=== PATIENT | male | born 1955 | race Caucasian/White ===

== ENCOUNTER → 2019-10-06 | Outpatient (CLI) | payer BC ==
--- NOTE | 2019-10-06 12:16 | EST ---
EXERCISE STRESS AGE: 64 SEX: M HT: 72" WT: 215 PROTOCOL: Rafa Stress Test STAGE: 3 DURATION OF EXERCISE: 9:00 HEART RATE REST: 68 BLOOD PRESSURE REST: 139/92 MAXIMUM HEART RATE ACHIEVED: 135 MAXIMUM BLOOD PRESSURE: 230/96 85% MPHR: 134 100% MPHR: 158 METS: 10.5 INDICATIONS: Exertional fatigue. CLINICAL INFORMATION: Baseline EKG shows sinus rhythm, normal axis, normal intervals. Patient exercised on Rafa protocol for a total of 9 minutes achieving 10 METS, 86% of predicted maximal heart rate without chest pain or diagnostic ST-segment depression. CONCLUSIONS: 1. Excellent exercise tolerance. 2. Negative stress test by EKG criteria. MMODL / IJN: [id number] /
== END | disposition home or self-care (01) ==
LOC: RADNMMAIN 08:29
PROVIDERS: ATTEND Family Medicine
DX: R53.83 Other fatigue (principal)
CPT/HCPCS: 93017

== ENCOUNTER 2023-03-24 11:09 | Day surgery (SDC) | payer MEDICARE, BC ==
[2023-03-24] MEDS: LACTATED RINGERS 1,000 ML IV SCH ×2 (12:15→13:12)
[2023-03-24 12:18] VITALS: TEMP 97.1
[2023-03-24] MEDS ORDERED: PROPOFOL 10 MG/ML 20 ML VIAL IV ONE (13:16)
--- NOTE | 2023-03-24 13:32 | P.PCN ---
Date of Procedure: 03/24/23 Procedure(s) Performed: BRIEF HISTORY: Patient is a 67-year-old pleasant white male scheduled for an elective colonoscopy as a part of screening for colon cancer and family history of colon cancer. His dad was diagnosed with colon cancer at age 80. PROCEDURE PERFORMED: Colonoscopy with snare polypectomy. PREOPERATIVE DIAGNOSIS: Screening for colon cancer and family history of colon cancer. IV sedation per Anesthesia. PROCEDURE: After informed consent was obtained, the patient, was brought into [facility] endoscopy unit. IV sedation was administered by Anesthesia under continuous monitoring. Digital rectal examination was normal. Initially the Olympus CF-160 flexible video colonoscope was then inserted in the rectum, gradually advanced into the cecum without any difficulty. Careful examination was performed as the scope was gradually being withdrawn. Ileocecal valve and the appendiceal orifice were visualized and appeared normal. Prep was excellent. Mucosa of the cecum, ascending colon, transverse colon, descending colon, sigmoid colon, and rectum appeared normal. There was a 4 mm and a 7 mm proximal rectal polyp status post cold snare polypectomy. Scattered sigmoid diverticulosis. Retroflexion was performed in the rectum and no lesions were seen. The patient tolerated the procedure well. IMPRESSION: 4 mm and 7 mm proximal rectal polyp status post snare polypectomy Scattered sigmoid diverticulosis. RECOMMENDATIONS: Findings of this examination were discussed with the patient as well as his family. He was advised to follow with the biopsy results. If the biopsy with adenoma he can have a repeat colonoscopy in 5 years
[2023-03-24 13:39] VITALS: PULSE 66
[2023-03-24 14:04] VITALS: BP 121/71; RESP 18
[2023-03-24] MEDS ORDERED: LACTATED RINGERS 1,000 ML IV ONE (14:04)
== END 2023-03-24 14:19 | disposition home or self-care (01) ==
LOC: ORWHC2ENDO 11:09
PROVIDERS: ATTEND Internal Medicine Gastroenterology
DX: Z12.11 Encounter for screening for malignant neoplasm of colon (principal); D12.8 Benign neoplasm of rectum; K57.30 Diverticulosis of large intestine without perforation or abscess without bleeding; I10 Essential (primary) hypertension; Z80.0 Family history of malignant neoplasm of digestive organs; M19.90 Unspecified osteoarthritis, unspecified site; Z79.899 Other long term (current) drug therapy
CPT/HCPCS: 88305; 45385; J2704

== ENCOUNTER → 2024-06-15 | Outpatient (CLI) | payer MEDICARE, BC ==
--- NOTE | 2024-06-15 16:13 | NM ---
EXAMINATION TYPE: NM bone scan whole body DATE OF EXAM: 06/15/2024 1:48 PM CLINICAL INDICATION:Male, 69 years old with history of M54.6 PAIN IN THORACIC SPINE; COMPARISON: MRI TECHNIQUE: Intravenous administration 24.3 mCi Tc 99m MDP followed by multiple scintigraphic images o f the appendicular and axial skeleton. Small [id number] thoracic and abdominal imaging performed. Images acquired 5.5 hours post injection. FINDINGS: No abnormal uptake is identified within the appendicular or axial skeleton to suggest metastatic dise ase. The thoracic spine demonstrates no evidence for focal uptake. There is increased uptake within the bilateral shoulder, sternoclavicular, and sacroiliac joints con sistent with degenerative changes. No other photopenic areas or areas of increased activity are ident ified. Physiologic radiotracer activity is demonstrated in the kidneys and bladder. IMPRESSION: Nothing to suggest metastatic disease. [facility], , 06/15/2024 4:11 PM
== END | disposition home or self-care (01) ==
LOC: RADNMMAIN 07:16
PROVIDERS: ATTEND Family Medicine
DX: M54.6 Pain in thoracic spine (principal)
CPT/HCPCS: 78306; A9503

== ENCOUNTER → 2024-08-08 | Outpatient (CLI) | payer MEDICARE, BC ==
[2024-08-08 09:16] VITALS: BP 147/80; PULSE 57; RESP 16; TEMP 97.1
--- NOTE | 2024-08-08 17:09 | P.PAINPG ---
Objective - Vital Signs Vital signs: Intake & Output 08/07/24 08/08/24 08/08/24 18:59 06:59 18:59 Weight 90.718 kg PQRS Measure Charge Sheet Comment: HISTORY OF PRESENT ILLNESS: A 69 yr old male as a referral from Dr Mc presents today w severe and chronic neck pain > 1 yr secondary to radiculopathy, spondylosis and facet arthropathy without myelopathy for evaluation. Pt states pain level is provoked at 8 /10 in intensity, constant, localized in the cervical spine, predominantly axial, achy in character w occasional shooting pain towards the shoulders and UEs. Pain is provoked by flexion. Pain is alleviated by PT x 6 wks which ended in 2020, physician guided home exercises almost daily since 2020, heat, ice, medications (Percocet, Neurontin from Dr Marie), topical Icy-Hot, repositioning and rest . Cervical disability score at 30. PMH: OA, HTN, GERD PSH: Cervical RFA (2020), R Elbow (2020) injections SH: Daily tobacco use, Occ ETOH use, No illicit drug use FH: CAD All: See list Meds: See list including Eliquis REVIEW OF ORGAN SYSTEMS: CONSTITUTIONAL: No fevers or chills. No recent weight loss. NEUROLOGICAL: + numbness and tingling along the distal extremities. No seizure disorders or headaches. MUSCULOSKELETAL: + pain PSYCHIATRIC: Denies current depression or suicidal thoughts. Physical Examinations : Constitutional : Cooperative , not in acute distress . Neurologic : Cranial nerve II to XII intact. No focal neurological deficits. Psychiatric : alert & oriented x 3. Matching mood & appropriate affect. Judgment & insight intact. Musculoskeletal : Cervical Spine Motor strength in the deltoid and biceps: Normal right side. Normal Left side Motor strength biceps and the wrist extensors: Normal right side . Normal left side Motor strength in the triceps muscle: Normal right side. Normal left side Deep tendon reflexes: Normal at the biceps. Normal at Brachioradialis. Normal at triceps Vertebral body tenderness to deep palpation over C6 Cervical facet loading test: positive bilaterally Spurling test: positive bilaterally Neck distraction test: positive bilaterally Bruno sign: positive bilaterally Lumbar spine Motor strength lower extremities ,thigh and legs 5/5 Right side , 5/5 Left side Deep tendon reflexes : Normal Knee Jerk. Normal Ankle Jerk Vertebral body tenderness over Li Test positive Lumbar facet Loading Test: positive Right / positive Left Range of motion of the lumbar spine Flexion 30 degrees, extension 10 degrees Straight Leg Raise test: Left/ Right positive at degrees Sophia test: positive right / positive left. Severe tenderness over the Sacroiliac joint on the Right / Left sides Gaenslen test: positive bilaterally Seated flexion test: positive bilaterally. Sacral spine : Severe tenderness over the Sacroiliac joint: right side / left side Range of motion: Flexion of the lumbar spine <60 degrees Range of motion: Extension of the lumbar spine <20 degrees Gaenslen's Test positive Sophia test: positive right side / left side Thigh Thrust Test Sacral Thrust Test Imaging: MRI non contrast cervical spine from 05/17/24 reviewed Assessment/ Plan : Cervical radiculopathy, C5-C6 mod spinal stenosis, Cervical facet arthropathy, Cerebellar tonsils identified on MRI 05/17/24 Recommendation of follow up w Dr Laughlin, neurologist re: cerebellar tonsils. Script provided. All questions answered. I have spent greater than 30 minutes on patient care today. Dr Jamison was available by phone for the evaluation of this patient. The time was used to review the medical records including relevant urine studies and Prescription history (MAPs), review of the available imaging, evaluation and examination of the patient, coordination of care with the medical staff and if applicable referring physicians, as well as creation of the medical record Home Medications: Ambulatory Orders Apixaban [Eliquis] 5 mg PO BID 03/19/23 Glucosamine/Chondr Golden A Sod [Osteo Bi-Flex Caplet] 1 tab PO QAM 03/19/23 Multivitamins, Thera [Multivitamin (formulary)] 1 tab PO QAM 03/19/23 amLODIPine [Norvasc] 10 mg PO QAM 03/19/23 lisinopriL 40 mg PO QAM 03/19/23 oxyCODONE-APAP 10-325MG [Percocet 10-325 mg] 1 tab PO Q4HR PRN 03/19/23 predniSONE 10 mg PO DAILY PRN 03/19/23 Controlled Substance Measures - Controlled Substance Measures Is patient prescribed a controlled substance at discharge?: No
== END ==
LOC: PNWHC3 08:31
PROVIDERS: ATTEND Specialist
DX: M47.22 Other spondylosis with radiculopathy, cervical region (principal); M48.02 Spinal stenosis, cervical region; G93.5 Compression of brain; G89.29 Other chronic pain
CPT/HCPCS: 99202

== ENCOUNTER → 2024-10-27 | Outpatient (CLI) | payer MEDICARE, BC ==
--- NOTE | 2024-10-27 14:26 | MR ---
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 COMPARISON: MR cervical spine 05/17/2024, 11/25/2014. TECHNIQUE: Multi planar, multi sequence imaging was performed through the brain. The patient was then given 9 cc of Gadobutrol intravenously and multi planar, T1 fat-saturation images were obtained. FINDINGS: The liang-white junctions, ventricular system, basal cisterns appear unremarkable. Age-appropriate cer ebral parenchymal volume. Diffusion-weighted imaging shows no evidence of restricted diffusion to sug gest acute/subacute infarct. Intracranial arterial flow voids are maintained. Midline structures show no abnormality. Patchy areas of high T2/FLAIR signal intensity are seen within the supratentorial pe riventricular and subcortical white matter. Largest is within the posterior right subcortical white m atter measuring up to 6 mm (series 601, image 23). The susceptibility weighted images demonstrate a p unctate single focus of blooming artifact within the right frontal lobe representing prior hemosideri n deposition. After administration of gadolinium, no abnormal enhancement is seen. No distinct cerebe llar lesion identified. The bone marrow signal is within normal limits. The unremarkable. Mild mucosal thickening in the eth moid sinuses. IMPRESSION: 1. No evidence of intracranial mass, acute/subacute infarct, or abnormal enhancement. No distinct cer ebellar lesion. 2. Nonspecific mild white matter changes, likely related to small vessel ischemic disease. Demyelinat ing disease, chronic migraines, vasculitis, Lyme disease are other considerations. [facility], , 10/27/2024 2:24 PM
== END | disposition home or self-care (01) ==
LOC: RADMRIMAIN 12:49
PROVIDERS: ATTEND Psychiatry & Neurology Neurology
DX: G93.9 Disorder of brain, unspecified (principal); G43.909 Migraine, unspecified, not intractable, without status migrainosus; A69.20 Lyme disease, unspecified; R90.82 White matter disease, unspecified
CPT/HCPCS: 70553; A9585

== ENCOUNTER → 2025-02-06 | Outpatient (CLI) | payer MEDICARE, BC ==
[2025-02-06 08:16] VITALS: BP 152/78; PULSE 99; RESP 16; TEMP 97.2
--- NOTE | 2025-02-06 14:29 | P.PAINPG ---
PQRS Measure Charge Sheet Comment: HISTORY OF PRESENT ILLNESS: A 69 yr old male presents today w severe and chronic neck pain > 1 yr secondary to radiculopathy, spondylosis and facet arthropathy without myelopathy for evaluation. Pt states pain level is provoked at 5-8 /10 in intensity, constant, localized in the cervical spine, predominantly axial, achy in character w occasional shooting pain towards the shoulders and UEs. Pain is provoked by flexion. Pain is alleviated by PT x 6 wks which ended in 2020, physician guided home exercises almost daily since 2020, heat, ice, medications, topical, repositioning and rest . Cervical disability score at 30. Interventional procedures include ESIs L C6-C7 (2019) Medications include Percocet and Neurontin (from Dr Marie), Icy-Hot, Eliquis REVIEW OF ORGAN SYSTEMS: CONSTITUTIONAL: No fevers or chills. No recent weight loss. NEUROLOGICAL: + numbness and tingling along the distal extremities. No seizure disorders or headaches. MUSCULOSKELETAL: + pain PSYCHIATRIC: Denies current depression or suicidal thoughts. Physical Examinations : Constitutional : Cooperative , not in acute distress . Neurologic : Cranial nerve II to XII intact. No focal neurological deficits. Psychiatric : alert & oriented x 3. Matching mood & appropriate affect. Judgment & insight intact. Musculoskeletal : Cervical Spine Motor strength in the deltoid and biceps: Normal right side. Normal Left side Motor strength biceps and the wrist extensors: Normal right side . Normal left side Motor strength in the triceps muscle: Normal right side. Normal left side Deep tendon reflexes: Normal at the biceps. Normal at Brachioradialis. Normal at triceps Vertebral body tenderness to deep palpation over C6 Cervical facet loading test: positive bilaterally Spurling test: positive bilaterally Neck distraction test: positive C6-C7 L> R Bruno sign: positive bilaterally Lumbar spine Motor strength lower extremities ,thigh and legs 5/5 Right side , 5/5 Left side Deep tendon reflexes : Normal Knee Jerk. Normal Ankle Jerk Vertebral body tenderness over Li Test positive Lumbar facet Loading Test: positive Right / positive Left Range of motion of the lumbar spine Flexion 30 degrees, extension 10 degrees Straight Leg Raise test: Left/ Right positive at degrees Sophia test: positive right / positive left. Severe tenderness over the Sacroiliac joint on the Right / Left sides Gaenslen test: positive bilaterally Seated flexion test: positive bilaterally. Sacral spine : Severe tenderness over the Sacroiliac joint: right side / left side Range of motion: Flexion of the lumbar spine <60 degrees Range of motion: Extension of the lumbar spine <20 degrees Gaenslen's Test positive Sophia test: positive right side / left side Thigh Thrust Test Sacral Thrust Test Imaging: MRI non contrast cervical spine from 05/17/24 reviewed Assessment/ Plan : C5-C7 radiculopathy, Cervical facet arthropathy Recommendation of L paramedian HILLARY C6-C7 #1. Risk, benefits of procedure discussed and patient verbalized understanding. Protocol for discontinuation/continuation of medications surrounding procedure discussed. All questions answered. I have spent greater than 30 minutes on patient care today. Dr Jamison was available by phone for the evaluation of this patient. The time was used to review the medical records including relevant urine studies and Prescription history (MAPs), review of the available imaging, evaluation and examination of the patient, coordination of care with the medical staff and if applicable referring physicians, as well as creation of the medical record PQRS Narrative: Narcotic Agreement Date Signed 08/08/24 Hx Alcohol Use (MH) Yes Home Medications: Ambulatory Orders Apixaban [Eliquis] 5 mg PO BID 03/19/23 Glucosamine/Chondr Golden A Sod [Osteo Bi-Flex Caplet] 1 tab PO QAM 03/19/23 Multivitamins, Thera [Multivitamin (formulary)] 1 tab PO QAM 03/19/23 amLODIPine [Norvasc] 10 mg PO QAM 03/19/23 lisinopriL 40 mg PO QAM 03/19/23 oxyCODONE-APAP 10-325MG [Percocet 10-325 mg] 1 tab PO Q4HR PRN 03/19/23 predniSONE 10 mg PO DAILY PRN 03/19/23 Controlled Substance Measures - Controlled Substance Measures Is patient prescribed a controlled substance at discharge?: No
== END ==
LOC: PNWHC3 07:56
PROVIDERS: ATTEND Specialist
DX: M50.30 Other cervical disc degeneration, unspecified cervical region (principal); M54.51 Vertebrogenic low back pain; M47.22 Other spondylosis with radiculopathy, cervical region; M50.33 Other cervical disc degeneration, cervicothoracic region; M50.323 Other cervical disc degeneration at C6-C7 level; M47.817 Spondylosis without myelopathy or radiculopathy, lumbosacral region; M50.322 Other cervical disc degeneration at C5-C6 level; M62.830 Muscle spasm of back; M47.816 Spondylosis without myelopathy or radiculopathy, lumbar region
CPT/HCPCS: 99211

== ENCOUNTER 2025-02-21 08:31 | Day surgery (SDC) | payer MEDICARE, BC ==
[2025-02-17 11:40] VITALS: BMI 27.1
[~2025-02-21 08:31] MED LIST: LACTATED RINGERS 1,000 ML IV SCH
[2025-02-21 08:52] VITALS: RESP 18; TEMP 97.7
[2025-02-21] MEDS ORDERED: IOPAMIDOL M300 15ML VIAL ONE (09:05)
[2025-02-21] MEDS ORDERED: DEXAMETHASONE SOD PHOSPHATE 10 MG/ML 1 ML VIAL ONE (09:05)
--- NOTE | 2025-02-21 09:25 | P.PCN ---
Description of Procedure: PROCEDURE 1. Injection of radio contrast material into cervical epidural space, cervical epidurogram, interpretation of cervical epidurogram, Cervical epidural steroid injection under fluoroscopic guidance, C6-7 (fluoroscopy images available in the radiology department ) 2. Cervical epidurogram. PREOPERATIVE DIAGNOSIS: 1- Cervical Degenerative Disc Diseases 2- Cervical radiculopathy., 3-cervical spondylosis with cervical Facet arthropathy without myelopathy.4-cervical spinal stenosis POSTOPERATIVE DIAGNOSIS: : 1- Cervical Degenerative Disc Diseases , 2- Cervical radiculopathy. 3-,cervical spondylosis with cervical Facet arthropathy without myelopathy. 4-cervical spinal stenosis ANESTHESIA: Local anesthetics infiltration. In the OR continuous pulse ox, EKG, blood pressure and verbal communication was maintained. EBL : None PROCEDURE INDICATION: The patient with neck pain and radiculitis unresponsive to conservative treatment consents for procedure. Discussed the procedure, alternatives and possible complications which may include increased pain, infection, bleeding, nerve damage, paralysis all of which could be permanent. Patient understands and all questions were answered. PROCEDURE DESCRIPTION : After getting consent patient was taken to the OR , positioned in prone position and time out was completed. A pillow was placed under the patients chest to increase the cervical interlaminar space. The cervical area was prepped and draped in the usual sterile fashion. Using anterior-posterior fluoroscopy, interlaminar space was identified and the skin over this site was marked and then infiltrated with 1% lidocaine subcutaneously. Subsequently, a 20-gauge 3-1/2-inch Tuohy epidural needle was inserted and advanced toward the epidural space with the loss of resistance technique using a syringe filled with preservative-free normal saline and guided by AP and lateral fluoroscopy. Negative CSF, negative blood, negative paresthesia. The correct needle position in the epidural space was verified with the injection of 2 mL of the water soluble contrast dye [id number]-200 and observing an excellent epidurogram with the epidural spread of the dye, after repeat negative aspiration 3 mL solution was injected which consists of 1 mL of preservative-free normal saline mixed with 2 mL of 20 mg dexamethasone and a washout of epidurogram was seen. Needle was withdrawn intact, skin was cleansed, and bandages were applied. Disposition: Patient tolerated the procedure well. No complication. Patient was placed in supine position and transferred to the recovery room area in stable condition and there was no evidence of upper or lower extremity motor or sensory deficit after the procedure patient was discharged from recovery room after discharge criteria met and home discharge instructions was given by the staff and patient will follow with the pain clinic in 2-4 weeks
[2025-02-21 09:27] VITALS: PULSE 75
[2025-02-21 09:39] VITALS: BP 109/73
--- NOTE | 2025-02-21 09:44 | FL ---
EXAMINATION TYPE: FL guided pain mgmt statistic DATE OF EXAM: 02/21/2025 FLUOROSCOPY 23 SEC FL .[id number] DAP DOSE Images show a cervical epidural steroid injection. There are 2 images submitted. [facility], , 02/21/2025 9:41 AM
== END 2025-02-21 09:42 | disposition home or self-care (01) ==
LOC: ORPAIN 08:31
PROVIDERS: ATTEND Pain Medicine Interventional Pain Medicine
DX: M47.22 Other spondylosis with radiculopathy, cervical region (principal); M48.02 Spinal stenosis, cervical region; M50.123 Cervical disc disorder at C6-C7 level with radiculopathy; Z79.01 Long term (current) use of anticoagulants
CPT/HCPCS: 62321; J1100; Q9967